=== PATIENT | male | born 1985 | race Caucasian/White ===

== ENCOUNTER 2016-08-03 11:19 | Emergency (ER) | payer MEDICAID ==
[~2016-08-03] VITALS: Ht 175.3 cm; Wt 63.0 kg
[2016-08-03 11:36] VITALS: BP 112/64; PULSE 71; RESP 16
--- NOTE | 2016-08-03 12:33 | ED.REPORT ---
HPI-Extremity Problem Upper Date of Service Aug 03, 2016 ED Provider: Miguel Abarca PA-C Krishna is a 31-year-old male presenting with chief complaint of left hand pain. He reports catching himself on the grab handle of his truck to prevent a fall and wrenching the wrist. He reports hearing 2 pops and that digits 2 through 5 are "tingly." He reports pain with range of motion and localizes his pain to the base of the first metacarpal, radiating across his hand. Denies elbow pain. Nursing Notes Stated Complaint: WRIST PAIN Chief Complaint: Extremity Trauma Nursing Notes Reviewed: Yes Scheduled PRN Naproxen (Naproxen) 500 Mg Tab 500 MG PO BID PRN PRN For Pain General Time Seen by MD: 12:18 Chief Complaint Wrist injury left Past Medical History Past Medical History Denies Review of Systems Review of Systems Note: Negative unless stated otherwise in history of present illness Physical Exam General: Well appearing, well developed, well nourished, no acute distress. Grasps left wrist and appears to be in pain. Left elbow: Normal to inspection, nontender, full range of motion. Left arm: Normal to inspection, nontender along the length of the radius and ulna. Left wrist/hand: Normal to inspection. Moderately tender at the base of second metacarpal. Otherwise nontender including the anatomical snuffbox. Negative tenderness with axial loading of the first metacarpal. Full range of motion at wrist, MCP, PIP, DIP joints with pain. Brisk capillary refill and sensation intact distal phalanges. Strength in thumb abduction, pincer grasp with first and fifth digits, and abduction of fifth digit intact. Head: Atraumatic, normocephalic. Eyes: No scleral icterus or injection. No discharge. Vision grossly intact. ENT: Voice clear, hearing grossly intact. Respiratory: No respiratory distress, no increased work of breathing. Speaks in complete sentences. Skin: Warm and dry. Neurological: Grossly nonfocal. Psychological: alert and oriented. Speech appropriate, linear and logical. Behavior appropriate. Initial Vital Signs Vital Signs (First) Date Time Temp Pulse Resp B/P Pulse Ox O2 Delivery O2 Flow Rate FiO2 08/03/16 11:36 36.5 71 16 112/64 Room Air Normal Interpretation & Diagnostics X-Ray Interpretation Xray Interpretation: PROCEDURE: X-RAY LEFT WRIST COMPLETE, MINIMUM THREE VIEWS ([id number]) INDICATIONS: left hand pain IMPRESSION: No fracture. No osseous lesion. If symptoms and/or clinical suspicion for pathology persists, further assessment with repeat radiographs or advanced imaging (e.g. CT, MRI or bone scan) may be helpful. X-Ray Ordered: Wrist left Re-Eval/Medical Decision Med Decision/Clinical Course 31-year-old male presents with a chief complaint of left wrist pain that began when he wrenched his wrist by grabbing handle while trying to arrest a fall. complains of pain at the base of his second metacarpal, pain with grasping. Physical exam reveals a normal-appearing hand and wrist, full painless passive range of motion, patient resists active range of motion. Neurovascularly intact. Tender at the base of the second metacarpal. Negative snuffbox tenderness, pain with axial loading of first metacarpal. X-ray reveals no fracture. I discussed the case with Dr. Garcia who met with and examined the patient. He feels that an occult fracture is highly unlikely. Recommended [place] wrap, NSAIDs, ice. Provided orthopedic referral to be used if symptoms continue in one week. Provided emergency return precautions. Patient verbalized understanding of, and consent to, the plan. Discharge & Departure Impression: Primary Impression: Soft tissue injury of left wrist Disposition: Home Discharge Condition All VS Reviewed: Yes Condition: Stable Additional Instructions: Evaluation in the emergency department for left wrist pain includes history, physical examination and x-rays all of which are reassuring that there is not a fracture in your hand. We believe this is most likely a soft tissue injury to the tendons of the wrist. This should improve steadily over the next week or so. We have placed the wrist in a compression wrap here in the emergency department. Feel free to remove this to wash or adjust for comfort. Elevate the affected limb above the level of your heart as much as possible over the next week to reduce swelling and pain. Ice the affected area 2-3 times a day for the next several days. The pain is best treated with 500 mg of naproxen (Aleve), or 1000 mg of acetaminophen (Tylenol) every 6 hours. These drugs can be taken at the same time for more severe pain. A provide urine referral for an orthopedic surgeon. Please contact his office if your pain has not improved or is worsening in about a week. Return to the emergency department for new or worsening symptoms. Referrals: Joe Ortega DO EDSupervising Provider for APC: Pravin Latham DO Attending Statement I have seen and examined the patient. I have reviewed the chart and agree with the documentation as recorded by the Midlevel Provider, including assessment, treatment plan, and disposition. Findings from my exam are included in documentation above. copies to: Joe Ortega Seth PA-C Aug 03, 2016 12:33 Pravin Latham DO Aug 03, 2016 14:10
--- NOTE | 2016-08-03 13:24 | DRSVH ---
PROCEDURE: X-RAY LEFT WRIST COMPLETE, MINIMUM THREE VIEWS ([id number]) INDICATIONS: left hand pain TECHNIQUE: 4 views of the wrist were acquired. COMPARISON: None. FINDINGS: Bones: No fractures or dislocations. No suspicious bony lesions. Scaphoid view: Scaphoid is intact. Soft tissues: No suspicious soft tissue calcifications. IMPRESSION: No fracture. No osseous lesion. If symptoms and/or clinical suspicion for pathology pers ists, further assessment with repeat radiographs or advanced imaging (e.g. CT, MRI or bone scan) may be helpful. Dictated by: Kelsey Hoffmann MD, PhD on 08/03/2016 at 13:18 Approved by: Kelsey Hoffmann MD, PhD on 08/03/2016 at 13:22
[2016-08-03] MEDS ORDERED: NPR500T PO (13:44)
== END 2016-08-03 13:56 | disposition home or self-care (01) ==
LOC: SED 11:19
DX: S69.92XA Unspecified injury of left wrist, hand and finger(s), initial encounter (principal); W01.0XXA Fall on same level from slipping, tripping and stumbling without subsequent striking against object, initial encounter; Y93.89 Activity, other specified; Y92.89 Other specified places as the place of occurrence of the external cause; Y99.8 Other external cause status
CPT/HCPCS: 73110; 96372; 99284; J1885